=== PATIENT | male | born 1990 | race Caucasian/White ===

== ENCOUNTER 2019-09-23 11:23 | Emergency (ER) | payer MEDICAID ==
[~2019-09-23] VITALS: Ht 190.5 cm; Wt 88.0 kg
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
[2019-09-23] MEDS ORDERED: HYDROmorphone 1 MG/ML, 1ML INJ ONE (11:37)
[2019-09-23] MEDS ORDERED: HYDROmorphone 1 MG/ML, 1ML INJ IM ONE (12:00)
[2019-09-23] MEDS ORDERED: BUPIVACAINE 0.25% ONE (12:16)
--- NOTE | 2019-09-23 12:20 | NUR ---
BANDAGE REMOVED. DR. ARMSTRONG IN ROOM TO DO BLOCK. PLAN FOR DC W/ F/U TO [facility] W/ RX FOR ABX.
[2019-09-23 13:04] VITALS: BP 154/90
== END 2019-09-23 13:06 | disposition home or self-care (01) ==
LOC: ED 12:29
DX: S68.116A Complete traumatic metacarpophalangeal amputation of right little finger, initial encounter (principal); X58.XXXA Exposure to other specified factors, initial encounter; Y93.89 Activity, other specified; Y92.009 Unspecified place in unspecified non-institutional (private) residence as the place of occurrence of the external cause; Y99.8 Other external cause status
CPT/HCPCS: 64450; 96372; 99284; J1170